=== PATIENT | male | born 2000 | race Caucasian/White ===

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

== ENCOUNTER 2018-01-02 18:12 | Emergency (ER) | payer MEDICAID, OTHER ==
[2018-01-02 18:18] VITALS: BP 136/55
--- NOTE | 2018-01-02 18:45 | EDPHY ---
H & P Time Seen by Provider: 01/02/18 18:30 HPI/ROS: CHIEF COMPLAINT: Pop in my abdomen HISTORY OF PRESENT ILLNESS: Patient works as a operations trainer, was lifting a 45 lb kettlebell at 5:15 p.m. When he felt a pop just above his belly button and a little bulging and swelling there. No fever chills or vomiting. No symptoms. PAST MEDICAL HISTORY: Bipolar, depression anxiety Social history: Here with mom General Appearance: Alert and conversant, cooperative. Gastrointestinal: Abdomen is soft and non tender. Skin: Warm and dry, no rashes. Examined standing, with Valsalva the patient has a palpable hernia less than 1 cm above his umbilicus. It is soft and easily reducible. Emergency Department course/MDM: Likely acute periumbilical hernia sustained today with weight lifting. Does not appear to be strangulated or incarcerated. Precautions discussed, outpatient surgery referral through work comp. Smoking Status: Former smoker Constitutional: Initial Vital Signs Temperature (C) 36.8 C 01/02/18 18:16 Heart Rate 76 01/02/18 18:16 Respiratory Rate 16 01/02/18 18:16 Blood Pressure 136/55 H 01/02/18 18:16 O2 Sat (%) 95 01/02/18 18:16 O2 Delivery Mode Room Air Allergies/Adverse Reactions: No Known Allergies Allergy (Verified 01/02/18 18:14) Home Medications: Medication Instructions Recorded Hydroxyzine HCl 06/26/17 LaMICtal 06/26/17 Citalopram 10/18/17 Citalopram [CeleXA 20 MG] 20 mg PO DAILY #30 tab 10/18/17 hydrOXYzine HCL [hydrOXYzine HCL 50 mg PO BID #60 tab 10/18/17 (RX)] lamoTRIgine [LamICTAL 100 MG (*)] 100 mg PO BID #60 tab 10/18/17 Gabapentin 01/02/18 Departure - Departure Disposition: Home, Routine, Self-Care Clinical Impression: Umbilical hernia Qualifiers: Obstruction and gangrene presence: without obstruction or gangrene Qualified Code(s): K42.9 - Umbilical hernia without obstruction or gangrene Condition: Good Instructions: Umbilical Hernia (ED) Additional Instructions: No lifting more than 5-10 lb. Please follow-up tomorrow with work comp clinic for surgical referral for hernia , or see Dr. Mcdonald in the office. Referrals: Wilver Kaufman MD [Primary Care Provider] - As per Instructions Chandana Mcdonald MD [Medical Doctor] - As per Instructions
== END 2018-01-02 19:09 | disposition home or self-care (01) ==
DX: K42.9 Umbilical hernia without obstruction or gangrene (principal); X50.0XXA Overexertion from strenuous movement or load, initial encounter; Y92.39 Other specified sports and athletic area as the place of occurrence of the external cause; Y99.0 Civilian activity done for income or pay